=== PATIENT | male | born 2000 | race Hispanic/Latino ===

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

== ENCOUNTER 2020-12-19 07:44 | Emergency (ER) | payer SELFPAY ==
[2020-12-19] MEDS ORDERED: ONDANSETRON 4 MG/2 ML VIAL ONE ×2 (08:52→10:19)
[2020-12-19] MEDS ORDERED: FAMOTIDINE 20 MG/2 ML VIAL IV ONE (08:53)
[2020-12-19 08:55] LABS: Basophils % 0.6 % (0-1.3); Hematocrit 50.7 % (39.6-49.0); Lymphocytes % 30.4 % (15.3-44.8); MPV 9.3 fL (7.6-11.3); RBC Red Blood Cell Count 5.62 M/uL (4.33-5.43)
[2020-12-19 09:10] LABS: Albumin 4.6 g/dL (3.4-5.0); Bilirubin Direct 0.1 mg/dL (0-0.2); Bilirubin Total 0.5 mg/dL (0.2-1.0); Potassium 3.8 mmol/L (3.5-5.1); Protein, Total 8.7 g/dL (6.4-8.2)
[2020-12-19 09:44] LABS: Urine Blood Negative (Negative); Urine Glucose Negative (Negative); Urine Protein 1+ (Negative); Urine Specific Gravity >=1.030 (1.005-1.030)
[2020-12-19] MEDS ORDERED: MORPHINE 4 MG/ML SYR ONE (10:19)
--- NOTE | 2020-12-19 10:30 | RAD REPORT ---
EXAM DESCRIPTION: CTAbdomen Pelvis W Contrast - 12/19/2020 10:15 am CLINICAL HISTORY: Abdominal pain. ABD PAIN COMPARISON: Abdomen Pelvis W Contrast dated 01/08/2017 TECHNIQUE: Biphasic CT imaging of the abdomen and pelvis was performed with 100 ml non-ionic IV cont rast. All CT scans are performed using dose optimization technique as appropriate and may include automated exposure control or mA/KV adjustment according to patient size. FINDINGS: The lung bases are clear.Small hiatal hernia. The liver, spleen, pancreas, adrenal glands and kidneys are within normal limits. No bowel obstruction, free air, free fluid or abscess. The appendix is normal. Mildly prominent lym ph nodes in the small bowel mesenteric and right lower quadrant noted which may indicate a mesenteric adenitis. No suspicious bony findings. IMPRESSION: Mild mesenteric adenitis is suspected.
--- NOTE | 2020-12-19 10:32 | RAD REPORT ---
EXAM DESCRIPTION: US - Abdomen Exam Limited - 12/19/2020 10:27 am CLINICAL HISTORY: ABD PAIN COMPARISON: No comparisons FINDINGS: The gallbladder demonstrates no gallstones. No pericholecystic fluid or gallbladder wall t hickening. The common bile duct is normal measuring 2 mm.. The liver demonstrates no findings of intrahepatic biliary dilatation. IMPRESSION: Unremarkable examination.
--- NOTE | 2020-12-19 11:22 | ER ---
Nurse's Notes [facility] Name: Johnnie Molina III Age: 20 yrs Sex: Male : 2000 Arrival Date: 12/19/2020 Time: 07:46 Bed 8 Private MD: Diagnosis: Abdominal tenderness;Functional dyspepsia;Nonspecific mesenteric lymphadenitis Presentation: 12/19 07:46 Chief complaint: Patient states: epigastric burning, Nausea and diarrhea that began 4 ss days ago. Coronavirus screen: Client denies travel out of the [place] in the last 14 days. Ebola Screen: Patient denies exposure to infectious person. Patient denies travel to an Ebola-affected area in the 21 days before illness onset. Initial Sepsis Screen: Does the patient meet any 2 criteria? No. Patient's initial sepsis screen is negative. Does the patient have a suspected source of infection? No. Patient's initial sepsis screen is negative. Risk Assessment: Do you want to hurt yourself or someone else? Patient reports no desire to harm self or others. Onset of symptoms was December 15, 2020. 07:46 Method Of Arrival: Ambulatory ss 07:46 Acuity: MIRANDA 3 ss Historical: - Allergies: 07:48 NKA; ss - Home Meds: 07:48 None [Active]; ss - PMHx: 07:48 None; ss - PSHx: 07:48 None; ss - Immunization history:: Adult Immunizations up to date. - Social history:: Smoking status: Patient denies any tobacco usage or history of. - Family history:: not pertinent. Screenin:30 Abuse screen: Denies threats or abuse. Denies injuries from another. Nutritional hb screening: No deficits noted. Tuberculosis screening: No symptoms or risk factors identified. Fall Risk None identified. Assessment: 08:00 General: Appears in no apparent distress. Behavior is calm, cooperative. Pain: Pain hb currently is 0 out of 10 on a pain scale. at worst was 8 out of 10 on a pain scale. Neuro: Level of Consciousness is awake, alert, obeys commands, Oriented to person, place, time, situation. Cardiovascular: Patient's skin is warm and dry. Respiratory: Respiratory effort is even, unlabored, Respiratory pattern is regular, symmetrical. GI: Reports upper abdominal pain, nausea, vomiting. : No signs and/or symptoms were reported regarding the genitourinary system. EENT: No signs and/or symptoms were reported regarding the EENT system. Derm: Skin is pink, warm \T\ dry. Musculoskeletal: No signs and/or symptoms reported regarding the musculoskeletal system. 09:10 Reassessment: Patient appears in no apparent distress at this time. Patient and/or hb family updated on plan of care and expected duration. Pain level reassessed. Patient is alert, oriented x 3, equal unlabored respirations, skin warm/dry/pink. 10:01 Reassessment: Patient appears in no apparent distress at this time. Patient and/or hb family updated on plan of care and expected duration. Pain level reassessed. Patient is alert, oriented x 3, equal unlabored respirations, skin warm/dry/pink. 10:06 Reassessment: Pt taken to radiology. ph 11:08 Reassessment: Patient appears in no apparent distress at this time. Patient and/or hb family updated on plan of care and expected duration. Pain level reassessed. Patient is alert, oriented x 3, equal unlabored respirations, skin warm/dry/pink. Vital Signs: 07:50 BP 131 / 96; Pulse 100; Resp 16; Temp 98.2(TE); Pulse Ox 100% on R/A; Weight 108.86 kg; ss Height 5 ft. 7 in. (170.18 cm); Pain 10/10; 08:30 BP 132 / 88; Pulse 82; Resp 16; Pulse Ox 99% on R/A; hb 11:08 BP 123 / 89; Pulse 89; Resp 16; Pulse Ox 98% on R/A; hb 07:50 Body Mass Index 37.59 (108.86 kg, 170.18 cm) ED Course: 07:46 Patient arrived in ED. ss 07:47 Triage completed. ss 07:48 Arm band placed on right wrist. ss 08:11 Brando Rojo MD is Attending Physician. [facility] 08:28 Kylah Chatterjee, ISRA is Primary Nurse. hb 08:30 Patient has correct armband on for positive identification. Call light in reach. Side hb rails up X 1. 08:44 Initial lab(s) drawn, by me, sent to lab. Inserted saline lock: 20 gauge in right em1 antecubital area, using aseptic technique. Blood collected. 08:45 Basic Metabolic Panel Sent. em1 08:45 CBC with Diff Sent. em1 08:45 Hepatic Function Sent. em1 08:45 Lipase Sent. em1 10:15 CT Abd/Pelvis - IV Contrast Only In Process Unspecified. EDMS 10:27 US Abdomen Limited In Process Unspecified. EDMS 11:21 Shanelle Brown MD is Referral Physician. lizzy 11:33 No provider procedures requiring assistance completed. IV discontinued, intact, iw bleeding controlled, No redness/swelling at site. Pressure dressing applied. Administered Medications: 08:48 Drug: Pepcid (famotidine) 20 mg Route: IVP; Site: right antecubital; hb 09:30 Follow up: Response: No adverse reaction hb 08:48 Drug: Zofran (Ondansetron) 4 mg Route: IVP; Site: right antecubital; hb 09:30 Follow up: Response: No adverse reaction hb 10:00 Drug: Zofran (Ondansetron) 4 mg Route: IVP; Site: right antecubital; ph 10:30 Follow up: Response: No adverse reaction hb 10:02 Drug: morphine 4 mg Route: IVP; Site: right antecubital; ph 10:32 Follow up: Response: No adverse reaction hb 10:55 Drug: GI Cocktail without - (Maalox Suspension 30 ml, Lidocaine Liquid 2 % 15 hb ml) Route: PO; Outcome: 11:21 Discharge ordered by . lizzy 11:34 Discharged to home ambulatory, with family. iw 11:34 Condition: good 11:34 Discharge instructions given to patient, family, Instructed on discharge instructions, follow up and referral plans. medication usage, Demonstrated understanding of instructions, follow-up care, medications, Prescriptions given X 3. 11:34 Patient left the ED. iw Signatures: Dispatcher [employer] Brando Cool MD MD cha Williams, Irene, RN RN iw Bennett Sequeira em1 Ashley Leavitt RN RN Kathy Burr RN RN Kylah Chatterjee RN RN Corrections: (The following items were deleted from the chart) 07:51 07:46 Chief complaint: Patient states: Nausea and diarrhea that began 4 days ago. ss
--- NOTE | 2020-12-19 11:22 | EDPHYS ---
Physician Documentation [facility] Name: Johnnie Molina III Age: 20 yrs Sex: Male : 2000 Arrival Date: 12/19/2020 Time: 07:46 Bed 8 Private MD: DREA Physician Brando Rojo HPI: 12/19 09:54 This 20 yrs old Male presents to ER via Ambulatory with complaints of Nausea, lizzy Diarrhea. 09:54 The patient presents to the emergency department with nausea, vomiting, that is lizzy intermittent. Onset: The symptoms/episode began/occurred 2 day(s) ago. 09:54 The patient presents with abdominal pain in the upper abdomen, abdominal distention in lizzy the upper abdomen. Onset: The symptoms/episode began/occurred 2 day(s) ago. Possible causes: unknown. The symptoms are aggravated by pressure, food , The symptoms are alleviated by nothing. remaining still. The symptoms do not radiate. Associated signs and symptoms: The patient has no apparent associated signs or symptoms. Modifying factors: The symptoms are alleviated by nothing, the symptoms are aggravated by drinking, food, movement, pressure. Historical: - Allergies: 07:48 NKA; ss - Home Meds: 07:48 None [Active]; ss - PMHx: 07:48 None; ss - PSHx: 07:48 None; ss - Immunization history:: Adult Immunizations up to date. - Social history:: Smoking status: Patient denies any tobacco usage or history of. - Family history:: not pertinent. ROS: 09:54 Constitutional: Negative for fever, chills, and weight loss, Eyes: Negative for injury, lizzy pain, redness, and discharge, ENT: Negative for injury, pain, and discharge, Neck: Negative for injury, pain, and swelling, Cardiovascular: Negative for chest pain, palpitations, and edema, Respiratory: Negative for shortness of breath, cough, wheezing, and pleuritic chest pain, Back: Negative for injury and pain, : Negative for injury, bleeding, discharge, and swelling, MS/Extremity: Negative for injury and deformity, Skin: Negative for injury, rash, and discoloration, Neuro: Negative for headache, weakness, numbness, tingling, and seizure, Psych: Negative for depression, anxiety, suicide ideation, homicidal ideation, and hallucinations, Allergy/Immunology: Negative for hives, rash, and allergies, Endocrine: Negative for neck swelling, polydipsia, polyuria, polyphagia, and marked weight changes, Hematologic/Lymphatic: Negative for swollen nodes, abnormal bleeding, and unusual bruising. 09:54 Abdomen/GI: Positive for abdominal pain, nausea and vomiting, diarrhea, of the epigastric area, right upper quadrant and left upper quadrant. Exam: 09:54 Constitutional: This is a well developed, well nourished patient who is awake, alert, lizzy and in no acute distress. Head/Face: Normocephalic, atraumatic. Eyes: Pupils equal round and reactive to light, extra-ocular motions intact. Lids and lashes normal. Conjunctiva and sclera are non-icteric and not injected. Cornea within normal limits. Periorbital areas with no swelling, redness, or edema. ENT: Nares patent. No nasal discharge, no septal abnormalities noted. Tympanic membranes are normal and external auditory canals are clear. Oropharynx with no redness, swelling, or masses, exudates, or evidence of obstruction, uvula midline. Mucous membranes moist. Neck: Trachea midline, no thyromegaly or masses palpated, and no cervical lymphadenopathy. Supple, full range of motion without nuchal rigidity, or vertebral point tenderness. No Meningismus. Chest/axilla: Normal chest wall appearance and motion. Nontender with no deformity. No lesions are appreciated. Cardiovascular: Regular rate and rhythm with a normal S1 and S2. No gallops, murmurs, or rubs. Normal PMI, no JVD. No pulse deficits. Respiratory: Lungs have equal breath sounds bilaterally, clear to auscultation and percussion. No rales, rhonchi or wheezes noted. No increased work of breathing, no retractions or nasal flaring. Back: No spinal tenderness. No costovertebral tenderness. Full range of motion. Male : Normal genitalia with no discharge or lesions. Skin: Warm, dry with normal turgor. Normal color with no rashes, no lesions, and no evidence of cellulitis. MS/ Extremity: Pulses equal, no cyanosis. Neurovascular intact. Full, normal range of motion. Neuro: Awake and alert, GCS 15, oriented to person, place, time, and situation. Cranial nerves II-XII grossly intact. Motor strength 5/5 in all extremities. Sensory grossly intact. Cerebellar exam normal. Normal gait. Psych: Awake, alert, with orientation to person, place and time. Behavior, mood, and affect are within normal limits. 09:54 Abdomen/GI: Inspection: distension, Bowel sounds: normal, Palpation: mild abdominal tenderness, in the epigastric area, right upper quadrant and left upper quadrant, Liver: no appreciated palpable abnormalities, Hernia: not appreciated. Vital Signs: 07:50 BP 131 / 96; Pulse 100; Resp 16; Temp 98.2(TE); Pulse Ox 100% on R/A; Weight 108.86 kg; ss Height 5 ft. 7 in. (170.18 cm); Pain 10/10; 08:30 BP 132 / 88; Pulse 82; Resp 16; Pulse Ox 99% on R/A; hb 11:08 BP 123 / 89; Pulse 89; Resp 16; Pulse Ox 98% on R/A; hb 07:50 Body Mass Index 37.59 (108.86 kg, 170.18 cm) ss MDM: 08:11 Patient medically screened. [facility] 09:54 Differential diagnosis: Nonspecific abd pain, gastritis, cholecystitis, pancreatitis, lizzy diverticulitis, gastroenteritis, bowel obstruction, coronary artery disease. Data reviewed: vital signs, nurses notes, lab test result(s), radiologic studies, CT scan, ultrasound. Data interpreted: athletic monitor: rate is 82 beats/min, rhythm is normal sinus rhythm, Pulse oximetry: on room air is 99 %. Counseling: I had a detailed discussion with the patient and/or guardian regarding: the historical points, exam findings, and any diagnostic results supporting the discharge/admit diagnosis, radiology results, the need for outpatient follow up, for definitive care, a family practitioner, a voice engineer. 12/19 08:26 Order name: Basic Metabolic Panel; Complete Time: 09:52 iw 12/19 08:26 Order name: CBC with Diff; Complete Time: 09:52 iw 12/19 08:26 Order name: Hepatic Function; Complete Time: 09:52 iw 12/19 08:26 Order name: Lipase; Complete Time: 09:52 iw 12/19 09:43 Order name: Urine Dipstick-Ancillary; Complete Time: 09:52 EDMS 12/19 09:54 Order name: US Abdomen Limited; Complete Time: 11:20 lizzy 12/19 08:26 Order name: IV Saline Lock; Complete Time: 08:44 iw 12/19 08:26 Order name: Labs collected and sent; Complete Time: 08:44 12/19 09:54 Order name: CT Abd/Pelvis - IV Contrast Only; Complete Time: 11:20 [facility] 12/19 08:26 Order name: Urine Dipstick-Ancillary (obtain specimen); Complete Time: 09:43 iw Administered Medications: 08:48 Drug: Pepcid (famotidine) 20 mg Route: IVP; Site: right antecubital; hb 09:30 Follow up: Response: No adverse reaction hb 08:48 Drug: Zofran (Ondansetron) 4 mg Route: IVP; Site: right antecubital; hb 09:30 Follow up: Response: No adverse reaction hb 10:00 Drug: Zofran (Ondansetron) 4 mg Route: IVP; Site: right antecubital; ph 10:30 Follow up: Response: No adverse reaction hb 10:02 Drug: morphine 4 mg Route: IVP; Site: right antecubital; ph 10:32 Follow up: Response: No adverse reaction hb 10:55 Drug: GI Cocktail without - (Maalox Suspension 30 ml, Lidocaine Liquid 2 % 15 hb ml) Route: PO; Disposition: 12/19/20 11:21 Discharged to Home. Impression: Abdominal tenderness, Functional dyspepsia, Nonspecific mesenteric lymphadenitis. - Condition is Stable. - Discharge Instructions: Abdominal Pain, Adult, Indigestion, Nausea and Vomiting, Adult, Abdominal Pain, Adult, [id number]. - Prescriptions for Bentyl 20 mg Oral Tablet - take 1 tablet by ORAL route every 6 hours As needed; 20 tablet. Pepcid 20 mg Oral Tablet - take 1 tablet by ORAL route every 12 hours for 10 days; 20 tablet. Zofran 4 mg Oral Tablet - take 1 tablet by ORAL route every 12 hours As needed; 20 tablet. - Medication Reconciliation Form, Thank You Letter, Antibiotic Education, Prescription Opioid Use, Work release form form. - Follow up: Private Physician; When: 2 - 3 days; Reason: Recheck today's complaints, Re-evaluation by your physician. Follow up: Shanelle Brown; When: 2 - 3 days; Reason: Recheck today's complaints, Re-evaluation by your physician. - Problem is new. - Symptoms have improved. Signatures: Dispatcher [employer] EDBrando Dinh MD MD cha Williams, Irene, RN ISRA iw Ashley Leavitt RN RN ss Hall, Patricia, RN RN ph Baxter, Heather, ISRA RN Corrections: (The following items were deleted from the chart) 11:34 11:21 12/19/2020 11:21 Discharged to Home. Impression: Abdominal tenderness; Functional iw dyspepsia; Nonspecific mesenteric lymphadenitis. Condition is Stable. Discharge Instructions: Abdominal Pain, Adult, Indigestion, Nausea and Vomiting, Adult, Abdominal Pain, Adult, [id number]. Prescriptions for Bentyl 20 mg Oral Tablet - take 1 tablet by ORAL route every 6 hours As needed; 20 tablet, Pepcid 20 mg Oral Tablet - take 1 tablet by ORAL route every 12 hours for 10 days; 20 tablet, Zofran 4 mg Oral Tablet - take 1 tablet by ORAL route every 12 hours As needed; 20 tablet. and Forms are Medication Reconciliation Form, Thank You Letter, Antibiotic Education, Prescription Opioid Use. Follow up: Private Physician; When: 2 - 3 days; Reason: Recheck today's complaints, Re-evaluation by your physician. Follow up: Shanelle Brown; When: 2 - 3 days; Reason: Recheck today's complaints, Re-evaluation by your physician. Problem is new. Symptoms have improved. lizzy
[2020-12-19] MEDS ORDERED: LIDOCAINE VISCOUS 2% SOLN 15 ML UDC ONE (11:31)
[2020-12-19] MEDS ORDERED: MAGNES/ALUMIN/SIMET 30ML UCUP ONE (11:31)
[2020-12-19 11:41] VITALS: TEMP 98.2
[2020-12-19 11:44] VITALS: BP 123/89; O2SAT 98
== END 2020-12-19 11:34 | disposition home or self-care (01) ==
LOC: ER 07:44
DX: K30 Functional dyspepsia (principal); I88.0 Nonspecific mesenteric lymphadenitis
CPT/HCPCS: 36415; 74177; 76705; 80048; 80076; 81003; 83690; 85025; 96374; 96375; 99284; J2405; Q9967

== ENCOUNTER 2024-07-29 12:40 | Emergency (ER) | payer OTHER, SELFPAY ==
[2024-07-29] MEDS ORDERED: KETOROLAC 30 MG/ML INJ ONE (12:51)
[2024-07-29] MEDS ORDERED: ONDANSETRON 4 MG/2 ML VIAL ONE ×2 (12:51→14:58)
[2024-07-29] MEDS ORDERED: NA CHLORIDE 0.9% 1,000 ML ONE (12:52)
--- NOTE | 2024-07-29 13:06 | RAD REPORT ---
EXAMINATION: CT ABDOMEN AND PELVIS WITHOUT CONTRAST CLINICAL INDICATION: FLANK PAIN TECHNIQUE: CT abdomen and pelvis was performed, without IV contrast, as per department protocol. Axia l, sagittal and coronal reconstructions were obtained. One or more of the following dose reduction techniques were used: Automated exposure control, adjustment of the mA and kV according to the patien t size, and iterative reconstruction. Unless otherwise specified, incidental findings do not require dedicated imaging follow-up. COMPARISON: 12/19/2020 FINDINGS: The lack of intravenous contrast limits the sensitivity of this exam for evaluation of solid visceral organs, vascular structures, and retroperitoneum. LOWER CHEST: The visualized lung bases are clear. Small hiatal hernia. LIVER:Normal in size and contour. No focal lesion. Grossly unremarkable gallbladder. SPLEEN: Normal size. No focal lesion. PANCREAS: No mass, ductal dilation, or sharda-pancreatic fluid. ADRENALS: Normal; no mass. KIDNEYS AND URETERS: There is a tiny punctate calculus at the right UVJ resulting in mild right hydro nephrosis and hydroureter. No left-sided stone or hydronephrosis. URINARY BLADDER: Normal contour. GASTROINTESTINAL TRACT: No evidence of bowel obstruction, significant free fluid, free air or abscess . APPENDIX: Normal appendix. LYMPH NODES: No lymphadenopathy. MUSCULOSKELETAL: No acute or suspicious osseous abnormality. ADDITIONAL FINDINGS: None. IMPRESSION: Tiny punctate calculus right UVJ resulting in mild right hydronephrosis and hydroureter.
[2024-07-29 13:23] LABS: Absolute Eosinophils 0.1 K/uL (0-0.5); Absolute Lymphocytes (CBC) 3.4 K/uL (0.7-4.9); Absolute Monocytes 1.1 K/uL (0.1-1.3); Absolute Neutrophil 3.7 K/uL (1.8-8.0); Basophils % 0.6 % (0-1.3); Eosinophils % 0.6 % (0-4.4); Hematocrit 47.3 % (39.6-49.0); Hemoglobin 17.1 g/dL (13.6-17.9); Lymphocytes % 40.6 % (15.3-44.8); MCHC 36.1 g/dL (32.0-36.0); MCV 88.6 fL (80-100); MPV 9.1 fL (7.6-11.3); Monocytes % 13.4 % (3.3-12.3); Neutrophils % 44.8 % (41.7-73.7); Nucleated Red Blood Cells % 0.2 % (0-0); Platelets 235 thou/uL (152-406); RBC Red Blood Cell Count 5.34 M/uL (4.33-5.43); Red Cell Distribution Width 12.5 % (12.1-15.2)
[2024-07-29 13:40] LABS: Anion Gap 10.6 mEq/L (5.0-15.0); Bilirubin Total 0.8 mg/dL (0.2-1.0); Potassium 3.6 mEq/L (3.5-5.1)
[2024-07-29 14:06] LABS: Specific Gravity > 1.030 (1.005-1.030); Sqamous Epithelial <5 /HPF (None Seen); Urine Bacteria <20 /HPF (<20); Urine Bilirubin NEGATIVE (Negative); Urine Blood 3+ (Negative); Urine Clarity Extremely Turbid (Clear); Urine Color Yellow (Yellow); Urine Crystals Unidentified Few /HPF (None Seen); Urine Culture Reflex Order NOT NEEDED; Urine Glucose NEGATIVE (Negative); Urine Ketones NEGATIVE (Negative); Urine Microscopic Reflex YN ORDER UMIC; Urine Mucus 3+ /HPF (None Seen); Urine Nitrite NEGATIVE (Negative); Urine Protein 1+ (Negative); Urine RBC >50 /HPF (None Seen); Urine Urobilinogen Normal (Normal); Urine WBC <5 /HPF (<5); Urine WBC Clump Rare /HPF (None Seen); Urine Yeast (Budding) Trace /HPF (None Seen); Urine pH 5.5 (5.0-7.0)
--- NOTE | 2024-07-29 14:15 | EDPHYS ---
Physician Documentation [facility] Name: Johnnie Molina III Age: 24 yrs Sex: Male : 2000 Arrival Date: 07/29/2024 Time: 12:40 Bed 11 Private MD: ED Physician Hao Bautista HPI: 07/29 12:48 This 24 yrs old Male presents to ER via Unassigned with complaints of kb Abdominal Pain, Flank Pain. 12:48 Pt is a 24 year old male who presents for right flank pain that radiates to right side kb of abd that started one hour guard captain. States pain began after urinating and he did have difficulty urinating. Denies symptoms prior to onset one hour ago. Reports nausea. Denies vomiting, diarrhea, fever. No history of kidney stones or similar pain. . Historical: - Allergies: 12:50 NKA; me1 - Home Meds: 12:50 None [Active]; me1 - PMHx: 12:50 None; me1 - PSHx: 12:50 None; me1 - Immunization history:: Adult Immunizations up to date. - Infectious Disease History:: Denies. - Social history:: Smoking status: Patient denies any tobacco usage or history of. ROS: 12:49 Constitutional: As per HPI kb Exam: 12:49 Constitutional: This is a well developed, well nourished patient who is awake, alert, kb and in no acute distress. Head/Face: Normocephalic, atraumatic. ENT: Moist Mucous membranes Cardiovascular: Regular rate Respiratory: Respirations even and unlabored. No increased work of breathing. Talking in full sentences Skin: Warm, dry with normal turgor. Normal color. MS/ Extremity: Pulses equal, no cyanosis. Neurovascular intact. Full, normal range of motion. Neuro: Awake and alert, GCS 15, oriented to person, place, time, and situation. 12:49 Abdomen/GI: Inspection: abdomen appears normal, Bowel sounds: normal, Palpation: soft, in all quadrants, mild abdominal tenderness, in the right upper quadrant and right lower quadrant, 12:49 Back: CVA tenderness, that is moderate, is noted on the right, Vital Signs: 12:47 BP 135 / 90; Pulse 79; Resp 17; Temp 98.8; Pulse Ox 96% ; Weight 108.86 kg; Height 5 me1 ft. 7 in. ; Pain 10/10; 13:50 BP 117 / 74; Pulse 62; Resp 16; Pulse Ox 96% ; me1 14:50 BP 111 / 70; Pulse 76; Resp 16; Temp 98.4; Pulse Ox 98% ; me1 12:47 Body Mass Index 37.59 (108.86 kg, 170.18 cm) me1 12:47 Pain Scale: Adult me1 MDM: 12:43 Medical Screening Exam initiated kb 14:14 Differential diagnosis: appendicitis, non-specific abd pain, Ureterolithiasis, urinary kb tract infection. Data reviewed: vital signs, nurses notes. Counseling: I had a detailed discussion with the patient and/or guardian regarding the historical points, exam findings, and any diagnostic results supporting the discharge/admit diagnosis, lab results, radiology results, the need for outpatient follow up, a family practitioner, to return to the emergency department if symptoms worsen or persist or if there are any questions or concerns that arise at home. 07/29 12:47 Order name: CBC with Diff; Complete Time: 13:29 kb 07/29 12:47 Order name: CMP; Complete Time: 13:54 kb 07/29 12:47 Order name: Lipase; Complete Time: 13:54 kb 07/29 12:47 Order name: Urinalysis w/ reflexes; Complete Time: 14:10 kb 07/29 12:47 Order name: CT Stone Protocol; Complete Time: 13:08 kb 07/29 12:47 Order name: IV Saline Lock; Complete Time: 13:20 kb 07/29 12:47 Order name: Labs collected and sent; Complete Time: 13:19 kb Administered Medications: 13:16 Drug: TORadol - Ketorolac IVP 15 mg IVP once Route: IVP; Site: right antecubital; ll1 14:17 Follow up: Response: No adverse reaction; Pain is decreased me1 13:16 Drug: Ondansetron IVP 4 mg IVP once; over 2 minutes Route: IVP; Site: right antecubital;ll1 14:17 Follow up: Response: No adverse reaction; Nausea is decreased me1 13:16 Drug: NS 0.9% IV 1000 ml IV at 1 bolus Per protocol; to be given as a bolus over 60 ll1 minutes Route: IV; Rate: 1 bolus; Site: right antecubital; 15:09 Follow up: Response: No adverse reaction; IV Status: Completed infusion; IV Intake: me1 1000ml 14:19 Drug: Flomax PO 0.4 mg PO once Route: PO; me1 14:47 Follow up: Response: No adverse reaction me1 14:50 Drug: HYDROcodone-acetaminophen PO 5 mg-325 mg 1 tabs PO once Route: PO; me1 15:08 Follow up: Response: No adverse reaction; Pain is decreased me1 15:08 Drug: Ondansetron IVP 4 mg IVP once; over 2 minutes Route: IVP; Site: right antecubital;me1 15:08 Follow up: Response: No adverse reaction; Nausea is decreased me1 Disposition Summary: 07/29/24 14:15 Discharge Ordered Notes: Location: Home kb Condition: Stable kb Diagnosis - Calculus of ureter kb Followup: kb - With: Emergency Department - When: As needed - Reason: Worsening of condition Followup: kb - With: Private Physician - When: 2 - 3 days - Reason: Recheck today's complaints, Continuance of care, Re-evaluation by your physician Discharge Instructions: - Discharge Summary Sheet kb - Kidney Stones, [id number] kb - Dietary Guidelines to Help Prevent Kidney Stones kb Forms: - Medication Reconciliation Form kb - Antibiotic Education kb - Prescription Opioid Use kb - Patient Portal Instructions kb - Leadership Thank You Letter kb Prescriptions: - Flomax 0.4 mg Oral capsule - take 1 capsule ORAL route daily; 10 capsule; Refills: 0, Product Selection kb Permitted - Zofran 4 mg Oral tablet - take 1 tablet ORAL route every 6 hours As needed; 12 tablet; Refills: 0, kb Product Selection Permitted - Diclofenac Sodium 75 mg Oral tablet, delayed release (enteric coated) - take 1 tablet ORAL route 2 times per day As needed; 30 tablet; Refills: 0, kb Product Selection Permitted Signatures: Dispatcher [employer] Gabby Florez FNP-Hieu MALDONADOP-Radha Dan, RN RN ll1 Jesika Smith RN RN me1 Corrections: (The following items were deleted from the chart) 12:47 12:47 CBC+H.LAB.BRZ ordered. EDMS EDMS 12:47 12:47 COMPREHENSIVE METABOLIC PANEL+C.LAB.BRZ ordered. EDMS EDMS 12:47 12:47 LIPASE+C.LAB.BRZ ordered. EDMS EDMS 12:47 12:47 Urinalysis+U.LAB.BRZ ordered. EDMS EDMS 12:47 12:47 Stone Protocol+CT.RAD.BRZ ordered. EDMS EDMS
--- NOTE | 2024-07-29 14:15 | ER ---
Nurse's Notes [facility] Name: Johnnie Molina III Age: 24 yrs Sex: Male : 2000 Arrival Date: 07/29/2024 Time: 12:40 Bed 11 Private MD: Diagnosis: Calculus of ureter Presentation: 07/29 12:47 Chief complaint: Patient states: right abdomen/flank pain radiates to right lower back, me1 10/10 sharp, came on suddenly after urinating. c/o nausea. Coronavirus screen: Vaccine status: Patient reports receiving the 2nd dose of the covid vaccine. Ebola Screen: No symptoms or risks identified at this time. Initial Sepsis Screen: Does the patient meet any 2 criteria? No. Patient's initial sepsis screen is negative. Risk Assessment: Do you want to hurt yourself or someone else? Patient reports no desire to harm self or others. Onset of symptoms was July 29, 2024 at 11:50. 12:47 Method Of Arrival: Ambulatory [facility] 12:47 Acuity: MIRANDA 3 me1 14:58 Initial Sepsis Screen: Does the patient have a suspected source of infection? No. me1 Patient's initial sepsis screen is negative. Historical: - Allergies: 12:50 NKA; me1 - Home Meds: 12:50 None [Active]; me1 - PMHx: 12:50 None; me1 - PSHx: 12:50 None; me1 - Immunization history:: Adult Immunizations up to date. - Infectious Disease History:: Denies. - Social history:: Smoking status: Patient denies any tobacco usage or history of. Screenin:50 [facility] ED Fall Risk Assessment (Adult) History of falling in the last 3 months, me1 including since admission No falls in past 3 months (0 pts) Confusion or Disorientation No (0 pts) Intoxicated or Sedated No (0 pts) Impaired Gait No (0 pts) Mobility Assist Device Used No (0 pt) Altered Elimination No (0 pt) Score/Fall Risk Level 0 - 2 = Low Risk. Abuse screen: Denies threats or abuse. Nutritional screening: No deficits noted. Tuberculosis screening: No symptoms or risk factors identified. Assessment: 12:50 General: Appears uncomfortable, well groomed, well developed, well nourished, Behavior me1 is calm, cooperative, appropriate for age, Reports c/o epigastric pain that radiates to RUQ and around to R flank, 10/10 with nausea. Pain: Complains of pain in epigastric area and right upper quadrant Pain radiates to back Pain currently is 10 out of 10 on a pain scale. Quality of pain is described as crampy, sharp, Pain began suddenly, Is continuous. Neuro: Level of Consciousness is awake, alert, obeys commands, Oriented to person, place, time, situation, Appropriate for age. Cardiovascular: Patient's skin is warm and dry. Respiratory: Airway is patent Respiratory effort is even, unlabored, Respiratory pattern is regular, symmetrical. GI: Abdomen is non-distended, Bowel sounds present X 4 quads. Abdomen is tender to palpation in right upper quadrant and right lower quadrant Reports upper abdominal pain, nausea. : Reports pain in right flank(s), upper quadrant(s) in lower back. EENT: No signs and/or symptoms were reported regarding the EENT system. Derm: Skin is intact, is healthy with good turgor, Skin is pink, warm \T\ dry. Musculoskeletal: No signs and/or symptoms reported regarding the musculoskeletal system. 14:21 Reassessment: Discharge delayed to finish IV fluids. mt1 Vital Signs: 12:47 BP 135 / 90; Pulse 79; Resp 17; Temp 98.8; Pulse Ox 96% ; Weight 108.86 kg; Height 5 me1 ft. 7 in. ; Pain 10/10; 13:50 BP 117 / 74; Pulse 62; Resp 16; Pulse Ox 96% ; me1 14:50 BP 111 / 70; Pulse 76; Resp 16; Temp 98.4; Pulse Ox 98% ; me1 12:47 Body Mass Index 37.59 (108.86 kg, 170.18 cm) me1 12:47 Pain Scale: Adult mt1 ED Course: 12:42 Patient arrived in ED. ra3 12:43 Gabby Alexis FNP-C [facility]. kb 12:43 Hao Bautista MD is Attending Physician. kb 12:50 Triage completed. me1 12:50 Arm band placed on Patient placed in an exam room. me1 12:50 Patient has correct armband on for positive identification. Bed in low position. Call me1 light in reach. Side rails up X2. Provided Education on: POC. Verbalized understanding.. Client placed on continuous cardiac and pulse oximetry monitoring. NIBP monitoring applied. Pulse ox on. NIBP on. 12:50 Warm blanket given. me1 12:50 No provider procedures requiring assistance completed. me1 12:58 CT Stone Protocol In Process Unspecified. EDMS 13:59 Initial lab(s) drawn, by me, sent to lab. Urine collected: clean catch specimen. bc6 Inserted saline lock: 20 gauge in right antecubital area, using aseptic technique. Blood collected. Flushed with 10 mL NS. 14:09 Jesika Smith, RN is Primary Nurse. me1 15:08 IV discontinued, intact, bleeding controlled, No redness/swelling at site. Pressure me1 dressing applied. Administered Medications: 13:16 Drug: TORadol - Ketorolac IVP 15 mg IVP once Route: IVP; Site: right antecubital; ll1 14:17 Follow up: Response: No adverse reaction; Pain is decreased me1 13:16 Drug: Ondansetron IVP 4 mg IVP once; over 2 minutes Route: IVP; Site: right antecubital;ll1 14:17 Follow up: Response: No adverse reaction; Nausea is decreased me1 13:16 Drug: NS 0.9% IV 1000 ml IV at 1 bolus Per protocol; to be given as a bolus over 60 ll1 minutes Route: IV; Rate: 1 bolus; Site: right antecubital; 15:09 Follow up: Response: No adverse reaction; IV Status: Completed infusion; IV Intake: me1 1000ml 14:19 Drug: Flomax PO 0.4 mg PO once Route: PO; me1 14:47 Follow up: Response: No adverse reaction me1 14:50 Drug: HYDROcodone-acetaminophen PO 5 mg-325 mg 1 tabs PO once Route: PO; me1 15:08 Follow up: Response: No adverse reaction; Pain is decreased me1 15:08 Drug: Ondansetron IVP 4 mg IVP once; over 2 minutes Route: IVP; Site: right antecubital;me1 15:08 Follow up: Response: No adverse reaction; Nausea is decreased me1 Medication: 12:50 VIS not applicable for this client. me1 Intake: 15:09 IV: 1000ml; Total: 1000ml. me1 Outcome: 14:15 Discharge ordered by . martina 15:08 Discharged to home ambulatory, me1 15:08 Condition: stable 15:08 Discharge instructions given to patient, Instructed on discharge instructions, follow up and referral plans. medication usage, Demonstrated understanding of instructions, follow-up care, medications, Prescriptions given X 3, 15:09 Patient left the ED. me1 Signatures: Dispatcher [employer] EDOK Gabby Alexis, DEPUTY CHIEF SHERIFF-C DEPUTY CHIEF SHERIFF-Radha Dan, RN RN 1 Lulu Silva 6 Jesika Smith RN RN mt1 Ayana Ham 3
[2024-07-29] MEDS ORDERED: TAMSULOSIN 0.4 MG SR CAP ONE (14:18)
[2024-07-29] MEDS ORDERED: HYDROCODONE/APAP 5/325 MG TAB ONE (14:43)
[2024-07-29 16:54] VITALS: BP 111/70; TEMP 98.4; O2SAT 98
== END 2024-07-29 15:09 | disposition home or self-care (01) ==
LOC: ER 12:40
DX: N20.1 Calculus of ureter (principal)
CPT/HCPCS: 96361; 85025; 81001; 36415; 83690; 80053; 76377; 74176; 96375; 96374; 99284; J2405 ×2; J7030